=== PATIENT | male | born 1985 | race African-American/Black ===

== ENCOUNTER 2022-11-09 16:30 | Emergency (ER) | payer OTHER ==
[2022-11-09 17:40] VITALS: BP 116/78; PULSE 66; RESP 20; TEMP 97.9; BMI 20.3
== END 2022-11-09 18:37 | disposition home or self-care (01) ==
LOC: FER 16:30
DX: K40.90 Unilateral inguinal hernia, without obstruction or gangrene, not specified as recurrent (principal); R19.04 Left lower quadrant abdominal swelling, mass and lump
CPT/HCPCS: 99282-25